=== PATIENT | male | born 1980 | race Caucasian/White ===

== ENCOUNTER 2016-11-08 12:19 | Emergency (ER) | payer MEDICAID ==
[~2016-11-08] VITALS: Ht 162.6 cm; Wt 95.0 kg
[2016-11-08 12:20] VITALS: BP 130/82; PULSE 74; RESP 20; TEMP 97.8; O2SAT 98
--- NOTE | 2016-11-08 12:36 | PD ---
HPI . hernia x months Chief Complaint: Abdominal Pain Time Seen by Provider: 12:36 Travel History International Travel<30 days: No Contact w/Intl Traveler<30days: No Traveled to known affect area: No History of Present Illness HPI 36-year-old male here with complaints of a herniated his abdomen that has been present for over months. His aunt is present and tells me that he has some developmental delays and reports that his been present for years. He became more concerned as it is growing in size. He denies any nausea, vomiting, abdominal pain or other symptoms. His main complaint is that the hernia is getting larger. [facility] Past Medical History Medical History: Denies Significant Hx Social History Alcohol Use: No Tobacco Use: Yes Substance Use: No Allergies-Medications (Allergen,Severity, Reaction): Coded Allergies: No Known Drug Allergies (Verified Allergy, Unknown, 11/08/16) Reported Meds & Prescriptions Reported Meds & Active Scripts Active No Active Prescriptions or Reported Medications Review of Systems General / Constitutional: No: Fever Eyes: No: Visual changes HENT: No: Headaches Cardiovascular: No: Chest Pain or Discomfort Respiratory: No: Shortness of Breath Gastrointestinal: Positive: Other (hernia), No: Abdominal Pain Genitourinary: No: Dysuria Musculoskeletal: No: Pain Skin: No Rash Neurologic: No: Weakness Psychiatric: No: Depression Endocrine: No: Polydipsia Hematologic/Lymphatic: No: Easy Bruising Physical Exam Narrative GENERAL: AAO x 3, no acute distress, Well-nourished, well-developed patient. SKIN: Warm and dry. No visible rashes or bruising. HEAD: Normocephalic and atraumatic. EYES: No scleral icterus. No injection or drainage. ENT: No nasal drainage noted. Mucous membranes pink. Airway patent. NECK: Supple, trachea midline. No JVD. CARDIOVASCULAR: Regular rate and rhythm without murmurs, gallops, or rubs. RESPIRATORY: Breath sounds equal bilaterally. No accessory muscle use. No rhonchi or rales. GASTROINTESTINAL: Abdomen soft, non-tender, nondistended. there is a reducible ventral hernia present, but there is also a 2-3 cm mass that is palpable adjacent to the hernia. it is firm and nontender. EXTREMITIES: No cyanosis or edema. BACK: No obvious deformity. 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 Data Data Last Documented VS Vital Signs Date Time Temp Pulse Resp B/P (MAP) Pulse Ox O2 Delivery O2 Flow Rate FiO2 11/08/16 12:31 18 11/08/16 12:20 97.8 74 130/82 (98) 98 Room Air Orders Orders Ct Abd/Pel W Iv Contrast(Rout) (11/08/16 12:36) Iv Access Insert/Monitor (11/08/16 12:36) NPO (11/08/16 12:36) Iohexol 350 Inj (Omnipaque 350 Inj) (11/08/16 15:15) MDM Medical Decision Making Medical Screen Exam Complete: Yes Emergency Medical Condition: Yes Medical Record Reviewed: Yes Differential Diagnosis ventral hernia, lipoma, abdominal mass Narrative Course 36 yr old male here with ventral hernia. On exam he has a reducible hernia, however there is a palpable mass posing some concern. I have discussed with my attending Dr. Walker, who has also examined the patient. We will check a ct of the abd/pelvis and make further recommendations pending workup. Last Impressions Abdomen/Pelvis CT 11/08/16 1236 Signed Impressions: Service Date/Time: Tuesday, November 08, 2016 15:04 - CONCLUSION: Midline hernia containing only fat Scattered diverticuli throughout the colon without inflammatory changes Region the cecum and terminal are normal without appendicitis There is no free fluid in the pelvis. Case Lujan MD FACR Discussed results with patient. Advised f/u with PCP. Patient verbalized understanding of instructions, questions were answered, and thanked me for their care. I advised them if their condition worsens, please return to the nearest emergency room for further care. Diagnosis Primary Impression: Hernia Patient Instructions: General Instructions Additional Instructions: Follow up with your primary care provider. Med/Other Pt SpecificInfo: No Change to Meds Scripts No Active Prescriptions or Reported Meds Disposition: 01 DISCHARGE HOME Condition: Stable [place] Ny Nov 08, 2016 12:36
--- NOTE | 2016-11-08 12:38 | PD ---
Physical Exam Date Seen by Provider: Nov 08, 2016 Narrative This patient is being seen for a ventral hernia that he states this been there for several months. He states that it is getting larger. On exam, he has an easily reducible ventral hernia. He also has a palpable mass that is a couple of centimeters in diameter, firm, mobile. Data Data Last Documented VS Vital Signs Date Time Temp Pulse Resp B/P (MAP) Pulse Ox O2 Delivery O2 Flow Rate FiO2 11/08/16 12:31 18 11/08/16 12:20 97.8 74 130/82 (98) 98 Room Air MDM Supervised Visit with DAPHNEY: Yes Narrative Course CT of his abdomen and pelvis has been ordered to further characterize the mass. Scripts No Active Prescriptions or Reported Meds Blank Walker MD Nov 08, 2016 12:38
[2016-11-08] MEDS ORDERED: IOHEXOL 350 MG/ML 10 ML VIAL (for RAD DIAG) IVCONTRAST ONE (15:15)
--- NOTE | 2016-11-08 15:24 | RADRPT ---
EXAM DATE/TIME: 11/08/2016 15:04 [facility] COMPARISON: No previous studies available for comparison. INDICATIONS : Pelvic abdominal pain IV CONTRAST: 87 cc Omnipaque 350 (iohexol) IV ORAL CONTRAST: No oral contrast ingested. RADIATION DOSE: 22.49 CTDIvol (mGy) MEDICAL HISTORY : None SURGICAL HISTORY : None. ENCOUNTER: Initial ACUITY: 4 - 6 months PAIN SCALE: 0/10 LOCATION: lower quadrant abdomen TECHNIQUE: Volumetric scanning of the abdomen and pelvis was performed. Using automated exposure control and ad justment of the mA and/or kV according to patient size, radiation dose was kept as low as reasonably achievable to obtain optimal diagnostic quality images. DICOM format image data is available electro nically for review and comparison. FINDINGS: LOWER LUNGS: The visualized lower lungs are clear. LIVER: Homogeneous density without lesion. There is no dilation of the biliary tree. No calcified gallston es. SPLEEN: Normal size without lesion. PANCREAS: Within normal limits. ADRENAL GLANDS: Within normal limits. RIGHT KIDNEY: Normal in size and shape. There is no mass, stone, or hydronephrosis. LEFT KIDNEY: Normal in size and shape. There is no mass, stone, or hydronephrosis.. VASCULAR: There is no aortic aneurysm. BOWEL/MESENTERY: Scattered diverticuli are seen throughout the colon without diverticulitis. RETROPERITONEUM: There is no lymphadenopathy. PELVIC CONTENTS: There is no free fluid ABDOMINAL WALL: Midline 5 CM hernia containing only fat. INGUINAL: There is no lymphadenopathy or hernia. MUSCULOSKELETAL: Within normal limits for patient age. CONCLUSION: Midline hernia containing only fat Scattered diverticuli throughout the colon without inflammatory changes Region the cecum and terminal are normal without appendicitis There is no free fluid in the pelvis. Case Lujan MD FACR on November 08, 2016 at 15:20 Board Certified Radiologist. This report was verified electronically.
== END 2016-11-08 15:47 | disposition home or self-care (01) ==
LOC: NEPD 12:19
DX: K43.9 Ventral hernia without obstruction or gangrene (principal)
CPT/HCPCS: 74177; 99284; Q9967